=== PATIENT | female | born 1985 | race Caucasian/White ===

== ENCOUNTER 2024-07-09 04:58 | Inpatient (IN) | payer OTHER ==
[2024-07-09 05:58] LABS: EPI CELLS 22 /uL (0-25.1); HYALINE CASTS 2 /uL (0-3.1); PH,URINE 5.5 (5.0-8.0); URINE APPEARANCE CLOUDY; URINE BACTERIA 283 /uL (0-1359); URINE BILIRUBIN NEGATIVE (NEGATIVE); URINE COLOR ORANGE; URINE GLUCOSE (UA) NEGATIVE (NEGATIVE); URINE KETONE NEGATIVE (NEGATIVE); URINE LEUK ESTERASE 3+ (NEGATIVE); URINE NITRITE NEGATIVE (NEGATIVE); URINE PROTEIN 1+ (NEGATIVE); URINE UROBILINOGEN 0.2 mg/dL (0.2-1.0); URINE WBC 1147 /uL (0-25.8)
[2024-07-09 05:59] LABS: URINE RBC 1109.6 /uL (0-23.9)
[2024-07-09 06:19] LABS: BASO % 0.6 % (0-2.0); EOS % 2.7 % (0-4.5); HEMATOCRIT 33.3 % (32.4-45.2); HEMOGLOBIN 10.8 GM/dL (10.7-15.3); MCH 28.1 pg (25.7-33.7); MCHC 32.3 g/dl (32.0-36.0); MEAN CELL VOLUME 87.1 fl (80-96); MEAN PLT VOLUME 8.7 fl (7.5-11.1); NEUT % 65.7 % (42.8-82.8); PLATELET COUNT 362 10^3/uL (134-434); RBC 3.82 M/mm3 (3.60-5.2); RDW 15.7 % (11.6-15.6); WHITE BLOOD COUNT 9.4 K/mm3 (4.0-10.0)
[2024-07-09 06:36] LABS: INR 1.04 (0.83-1.09); PROTHROMBIN TIME (PATIENT) 11.4 SEC (9.7-13.0)
[2024-07-09 06:39] LABS: ACTIVATED PTT 28.6 SECONDS (25.2-36.5)
[2024-07-09 06:56] LABS: POTASSIUM 4.1 mmol/L (3.5-5.1)
[2024-07-09 06:58] LABS: ALBUMIN 2.8 g/dl (3.4-5.0); BLOOD UREA NITROGEN 12.7 mg/dL (7-18); CALCIUM 8.8 mg/dL (8.5-10.1)
[2024-07-09 07:01] LABS: CREATININE 0.9 mg/dL (0.55-1.3)
[2024-07-09 07:03] LABS: BILIRUBIN,TOTAL 0.4 mg/dL (0.2-1)
[2024-07-09 07:04] LABS: HCG,QUALITATIVE URINE Negative
[2024-07-09] MEDS ORDERED: CEFTRIAXONE 1 G/50 ML PREMIX 50 ML IVPB ONE (07:14)
[2024-07-09] MEDS: CEFTRIAXONE 1,000 MG in DEXTROSE 5%-WATER - 50 ML IVPB ONE (07:27)
[2024-07-09 07:28] LABS: TOT PROT 6.7 g/dl (6.4-8.2)
[2024-07-09] MEDS ORDERED: MAGNESIUM SULFATE IN WATER 2 GM/50 ML IVPB IVPB ONE (09:57)
[2024-07-09] MEDS: MAGNESIUM SULFATE IN WATER 2 GM/50 ML IVPB IVPB ONE (10:43)
[2024-07-09] MEDS: MAGNESIUM 4GM/H20 - 4 GM/100 ML IVPB IVPB ONE (11:36)
[2024-07-09 12:10] LABS: URIC ACID 5.3 mg/dL (2.6-7.2)
[2024-07-09 13:54] LABS: MAGNESIUM 3.5 mg/dL (1.8-2.4)
[2024-07-09] MEDS: DEXTROSE 5%-LACTATED RINGERS 1,000 ML IV ONE (14:00)
[2024-07-09] MEDS ORDERED: MAGNESIUM SULFATE 20GM/500ML - 20 GM/500 ML INFUS.BAG ONE ×2 (14:09→23:48)
[2024-07-09] MEDS: MAGNESIUM SULFATE 20GM/500ML - 20 GM/500 ML INFUS.BAG IVPB SCH (14:25)
[2024-07-09 15:35] VITALS: BMI 369.4
[2024-07-09] MEDS ORDERED: ACETAMINOPHEN INJECTION 100 ML ONE (21:25)
[2024-07-09] MEDS: ACETAMINOPHEN 1000 MG/100 ML BAG IVPB ONE (21:30)
[2024-07-10] MEDS ORDERED: ACETAMINOPHEN INJECTION 100 ML ONE (06:16)
[2024-07-10] MEDS: ACETAMINOPHEN 1000 MG/100 ML BAG IVPB ONE (06:20)
[2024-07-10 07:41] LABS: BASO % 0.6 % (0-2.0); HEMATOCRIT 32.8 % (32.4-45.2); HEMOGLOBIN 10.3 GM/dL (10.7-15.3); LYMPH % 26.7 % (8-40); MCH 27.4 pg (25.7-33.7); MCHC 31.4 g/dl (32.0-36.0); MEAN CELL VOLUME 87.2 fl (80-96); MEAN PLT VOLUME 8.8 fl (7.5-11.1); MONO % 5.1 % (3.8-10.2); NEUT % 64.6 % (42.8-82.8); PLATELET COUNT 352 10^3/uL (134-434); RBC 3.76 M/mm3 (3.60-5.2); RDW 15.2 % (11.6-15.6); WHITE BLOOD COUNT 8.6 K/mm3 (4.0-10.0)
[2024-07-10 08:13] LABS: GAMMA GLUTAMYL TRANSPEPTIDASE 15 U/L (5-85)
[2024-07-10 08:14] LABS: MAGNESIUM 6.4 mg/dL (1.8-2.4)
[2024-07-10 08:16] LABS: SGOT/AST 14 U/L (15-37); SGPT/ALT 17 U/L (13-61); URIC ACID 5.3 mg/dL (2.6-7.2)
[2024-07-10 08:31] VITALS: RESP 18
[2024-07-10] MEDS ORDERED: LABETALOL HCL 200 MG TABLET (FP) ONE (09:02)
[2024-07-10] MEDS ORDERED: IBUPROFEN 600 MG TABLET (FP) PO ONE (09:02)
[2024-07-10] MEDS: LABETALOL HCL 200 MG TABLET (FP) PO SCH (09:05)
[2024-07-10] MEDS: IBUPROFEN 600 MG TABLET (FP) PO ONE (09:05)
[2024-07-11] MEDS: ACETAMINOPHEN 500 MG TABLET (FP) PO PRN (03:47)
[2024-07-11 10:37] VITALS: BP 135/64; PULSE 83; TEMP 98
== END 2024-07-11 11:15 | disposition home or self-care (01) | DRG 776 ==
LOC: JER 04:58 → JERBED 08:47 → JLDR 12:55 → J3W 07-10 11:49
PROVIDERS: ADMIT Obstetrics & Gynecology; ATTEND Obstetrics & Gynecology
DX: O14.15 Severe pre-eclampsia, complicating the puerperium (principal); N39.0 Urinary tract infection, site not specified; O86.20 Urinary tract infection following delivery, unspecified
CPT/HCPCS: 36415; 80053; 81003; 82570; 82977; 83010; 83615; 83735; 84156; 84450; 84460; 84550; 84703; 85025; 85045; 85610; 85730; 86850; 86900; 86901; 87086; 93005; 93010; 99285-25; J0131